=== PATIENT | male | born 1985 | race American Indian/Alaskan Native ===

== ENCOUNTER 2017-04-17 12:10 | Emergency (ER) | payer OTHER ==
[2017-04-17 12:51] VITALS: BP 139/86
--- NOTE | 2017-04-17 14:15 | Emergency Department Report ---
HPI - General Chief Complaint: Upper Respiratory Infection Time Seen by Provider: 04/17/17 14:07 - HPI HPI: Patient reports that he thinks he has a sinus infection. He said he started off with having a runny nose and nasal congestion 2 weeks ago and now in the past 3 days he did have an pain to his forehead, upper cheeks and facial area. Denies any fever or chills. He said he has dry cough he also reports that he vomited mucus from his nose which is slightly bloody. Pain is 8 out of 10 and feels like pressure. Taking Mucinex and other [id number] sinus medication but he said it didn't help. Nothing makes pain better or nothing makes it worse. Denies any shortness of breath or chest pain . Denies any difficulty swallowing or sore throat. Patient is a previous diabetic but since he had lap band surgery in August 2011 he has a need to take any medication. ED Past Medical Hx - Past Medical History Previous Medical History?: Yes Hx Hypertension: Yes (states he doesn't treat it since lap band) Hx Diabetes: Yes (states he doesn't treat it since lap band surgery) - Surgical History Past Surgical History?: Yes Additional Surgical History: lap band (aug 2011) - Family History Family history: hypertension - Social History Smoking Status: Never Smoker Substance Use Type: None - Medications Home Medications: Home Medications Medication Instructions Recorded Confirmed Last Taken Type Phenylephrine HCl [Nasal [place]] 30 ml NS PRN 01/23/15 01/23/15 Unknown History guaiFENesin/DEXTROMETHORPHAN 20 ml PO Q4HR PRN 01/23/15 01/23/15 Unknown History [Tussin Cough-Chest Congest Liq] Cyclobenzaprine [Flexeril] 10 mg PO TID PRN #30 tablet 01/08/16 Unknown Rx Ibuprofen [Motrin 800 MG tab] 800 mg PO Q8HR PRN #60 tablet 01/08/16 Unknown Rx Amoxicillin/K Clav Tab [Augmentin 1 tab PO Q12HR #20 tab 04/17/17 Unknown Rx 875 mg] Cetirizine HCl [ZyrTEC] 10 mg PO QAM #14 capsule 04/17/17 Unknown Rx Fluticasone [Flonase] 1 spray NS QDAY #1 bottle 04/17/17 Unknown Rx Ibuprofen [Motrin] 600 mg PO Q8H PRN #12 tablet 04/17/17 Unknown Rx ED Review of Systems ROS: Stated complaint: FACIAL PAIN Other details as noted in HPI Comment: All other systems reviewed and negative Constitutional: no symptoms reported Eyes: denies: eye pain, eye discharge, vision change ENT: congestion (nasal congestion and drainage), other (facial pain). denies: ear pain, throat pain Respiratory: cough. denies: shortness of breath, SOB with exertion, SOB at rest , stridor, wheezing Cardiovascular: denies: chest pain, palpitations, dyspnea on exertion, edema, syncope Gastrointestinal: denies: nausea, vomiting, diarrhea Musculoskeletal: denies: back pain, joint swelling, arthralgia, myalgia Skin: denies: rash Neurological: denies: headache, weakness, numbness, paresthesias, confusion, abnormal gait, vertigo Physical Exam - Physical Exam Vital Signs: Vital Signs 04/17/17 12:42 Temperature 98.6 F Pulse Rate 82 Respiratory 18 Rate Blood Pressure 139/86 O2 Sat by Pulse 99 Oximetry General: This is a 32-year-old male well-nourished well-developed in no acute distress. Physical Exam: Head: Normocephalic, atraumatic, no abrasion, no bruising and no contusion. Eyes: Biateral pupils equal and reactive to light, bilateral EOM intact.. Bilateral conjunctival and sclera without injection, normal accommodation. Ears: Bilateral EAC without any redness drainage or swelling, bilateral TM congested without erythema. Bilateral tragus is normal and nontender. No auricular abnormality. No Mastoid bones tenderness. Nose: Moist, erythema and congested with clear drainage bilateral maxillary and frontal sinuses tender to palpate. Mouth: Pharyngeal exudate or erythema , no peritonsillar abscess .Uvula is midline and oral airways patent. Mouth Moist and tongue is normal Neck: Supple, No Cervical adenopathy, full range of motion and no C-spine tenderness. No swelling or tracheal deviation Cardiovascular: S1, S2. Regular rate and rhythm. No murmur. Capillary refill is less then 3 seconds. Dry cough Lungs: Clear to auscultate bilaterally. No rhonchi, wheezes or rales. No chest wall tenderness MSK: Strength 5/5 in all extremities. No joint deformity or crepitus. Normal inspection. Full range of motion to all extremities Extremities: No clubbing, cyanosis or edema. +2 pulses. No neurovascular compromise Skin: Clean, dry and intact. No rash or lesions. Psych: Normal mood and behavior. ED Course Vital Signs 04/17/17 12:42 Temperature 98.6 F Pulse Rate 82 Respiratory 18 Rate Blood Pressure 139/86 O2 Sat by Pulse 99 Oximetry - Reevaluation(s) Reevaluation #1: 04/17/17 15:00 Given Decadron 10 mg IM in emergency room. ED Medical Decision Making - Medical Decision Making ED course: Care reports that he has symptoms of upper respiratory tract infection and he's been taking medication [id number] that's not helping. Physical findings were acute bacterial rhinosinusitis, cough and facial pain. His vital signs are stable and he is in no acute distress. She was given Toradol 60 mg IM and Decadron 10 mg IM in emergency room and his pain is relieved. I discussed with patient diagnosis and treatment plan and he voiced understanding. Patient discharged home from emergency room to follow up with his primary care physician in 3-5 days. He was given prescription for Motrin, Flonase, Zyrtec and Augmentin.` Critical care attestation.: If time is entered above; I have spent that time in minutes in the direct care of this critically ill patient, excluding procedure time. ED Disposition Clinical Impression: Acute bacterial rhinosinusitis, Cough in adult, Facial pain, acute Disposition: DC-01 TO HOME OR SELFCARE Is pt being admited?: No Does the pt Need Aspirin: No Condition: Stable Instructions: Acute Bacterial Rhinosinusitis (ED), Acute Cough (ED) Additional Instructions: Please follow-up with your primary care doctor as discussed and if you do not have one I will refer you to Dr. Martínez with primary care Take medication as prescribed Please increase her fluid intake and use saline nasal wash to flush and nostrils twice daily You can take Motrin as needed per prescription for pain. Prescriptions: Amoxicillin/K Clav Tab [Augmentin 875 mg] 1 tab PO Q12HR #20 tab Cetirizine HCl [ZyrTEC] 10 mg PO QAM #14 capsule Fluticasone [Flonase] 1 spray NS QDAY #1 bottle Ibuprofen [Motrin] 600 mg PO Q8H PRN #12 tablet PRN Reason: Pain Referrals: PRIMARY CARE,MD [Primary Care Provider] - 3-5 Days TRIP MARTÍNEZ MD [Staff Physician] - 3-5 Days Forms: Accompanied Note, Work/School Release Form(ED)
[2017-04-17] MEDS ORDERED: DECADRON IM STA (14:28)
[2017-04-17] MEDS ORDERED: TORADOL IM ONE (14:28)
== END 2017-04-17 15:17 | disposition home or self-care (01) ==
LOC: ED 12:10
DX: J01.90 Acute sinusitis, unspecified (principal); I10 Essential (primary) hypertension; E11.9 Type 2 diabetes mellitus without complications
CPT/HCPCS: 96372; 99282; J1100; J1885